=== PATIENT | male | born 1935 | race Hispanic/Latino ===

== ENCOUNTER → 2017-07-27 | Outpatient (CLI) | payer OTHER, MEDICARE | END | disposition home or self-care (01) | LOC: RAH 12:09 | PROVIDERS: ATTEND Family Medicine | DX: I82.4Z1 Acute embolism and thrombosis of unspecified deep veins of right distal lower extremity (principal) | CPT/HCPCS: 76882 ==

== ENCOUNTER → 2018-11-29 | Outpatient (CLI) | payer OTHER, MEDICARE | END | disposition home or self-care (01) | LOC: OIH 09:13 | PROVIDERS: ATTEND Family Medicine | DX: R22.41 Localized swelling, mass and lump, right lower limb (principal) | CPT/HCPCS: 73552 ==

== ENCOUNTER → 2018-12-17 | Outpatient (CLI) | payer OTHER, MEDICARE | END | disposition home or self-care (01) | LOC: RAH 10:53 | PROVIDERS: ATTEND Family Medicine | DX: M79.89 Other specified soft tissue disorders (principal) | CPT/HCPCS: 76882 ==